=== PATIENT | female | born 1955 | race Caucasian/White ===

== ENCOUNTER 2018-03-15 11:39 | Outpatient (CLI) | payer OTHER ==
--- NOTE | 2018-03-15 12:18 | DI ---
EXAM: Three views of the lumbar spine. History: Lower back pain. Findings: Cholecystectomy clips. Osteopenia. No acute fracture or subluxation of the lumbar spine. Mild to moderate multilevel degenerative disc space narrowing with a few small osteophytes. Modera te to severe facet hypertrophy on the right at L5-S1. Nonspecific pelvic calcifications. Impression: 1. No acute osseous abnormality of the lumbar spine. 2. Moderate to severe facet hypertrophy on the right at L5-S1
== END 2018-03-15 11:40 | disposition home or self-care (01) ==
LOC: LAB 11:39
PROVIDERS: ATTEND Emergency Medicine
DX: M54.5 Low back pain (principal)
CPT/HCPCS: 81001; 87086